=== PATIENT | female | born 1960 | race American Indian/Alaskan Native ===

== ENCOUNTER 2016-08-04 05:59 | Day surgery (SDC) | payer MEDICARE, OTHER ==
[2016-08-04] MEDS ORDERED: NACL 0.9% 1000 ML 1,000 ML IV SCH (06:00)
[2016-08-04] MEDS ORDERED: ANCEF/STERILE WATER 2 GM/20 ML 2 GM/20 ML SYRINGE IV NR (06:00)
[2016-08-04] MEDS ORDERED: NACL BACTERIOSTATIC INFILTRATI ONE (06:12)
[2016-08-04] MEDS ORDERED: NEO SYNEPHRINE ONE (07:13)
[2016-08-04] MEDS ORDERED: SUBLIMAZE ONE (07:13)
[2016-08-04] MEDS ORDERED: DIPRIVAN 10 MG/ML IV ONE ×2 (07:13→09:37)
[2016-08-04] MEDS ORDERED: NACL 0.9% 100 ML ONE (07:14)
[2016-08-04] MEDS ORDERED: DILAUDID IV PRN (07:14)
[2016-08-04] MEDS ORDERED: XYLOCAINE MPF 2% ONE (07:19)
--- NOTE | 2016-08-04 07:24 | Anesthesia Day of Surgery ---
Anesthesia Day of Surgery - Day of Surgery Patient Examined: Yes Patient H&P Reviewed: Yes Patient is NPO: Yes Beta Blockers: No Cardiac Clearance: No Pulmonary Clearance: No
--- NOTE | 2016-08-04 07:26 | Anesthesia Consultation ---
Anesthesia Consult and Med Hx Date of service: 08/04/16 - Airway Anesthetic Teeth Evaluation: Good (some missing) ROM Head & Neck: Adequate Mental/Hyoid Distance: Adequate Mallampati Class: Class II Intubation Access Assessment: Good - Pulmonary Exam CTA: Yes (BLBS/slight decrese with slight wheeze on right) - Cardiac Exam Cardiac Exam: RRR - Pre-Operative Health Status ASA Pre-Surgery Classification: ASA3 Proposed Anesthetic Plan: IV Sedation (ga if needed) - Pulmonary Hx Smoking: No (no hx PE 2015 with prn use of O2) Hx Asthma: Yes (SEASONAL no significant problem x 5 yrs) Hx Respiratory Symptoms: Yes (recent URI) SOB: No COPD: No Home Oxygen Therapy: Yes Hx Pneumonia: No Hx Sleep Apnea: No - Cardiovascular System Hx Hypertension: Yes Hx Heart Murmur: Yes - Endocrine Hx Renal Disease: Yes Hx End Stage Renal Disease: Yes () - Hematic Hx Anemia: Yes
[2016-08-04] MEDS ORDERED: PROVENTIL IH NR (07:30)
[2016-08-04] MEDS ORDERED: PEPCID PO NR (07:30)
[2016-08-04] MEDS ORDERED: NACL 0.9% 500 ML ONE (08:00)
[2016-08-04] MEDS ORDERED: XYLOCAINE 1%/ EPI 1:100,000 INFILTRATI ONE (08:00)
[2016-08-04] MEDS ORDERED: NACL 0.9% 250ML ONE (08:00)
[2016-08-04] MEDS ORDERED: VERSED IV NR (08:00)
[2016-08-04] MEDS ORDERED: LACTATED RINGERS 1,000 ML IV SCH (08:00)
[2016-08-04] MEDS ORDERED: ZOFRAN ONE (08:29)
[2016-08-04] MEDS ORDERED: DECADRON ONE (08:29)
[2016-08-04] MEDS ORDERED: NACL 0.9% IR ONE (08:59)
[2016-08-04] MEDS ORDERED: MARCAINE 0.5% INFILTRATI ONE (08:59)
[2016-08-04] MEDS ORDERED: HEPARIN 10,000 UNITS/10 ML 2,000 UNIT in NACL 0.9% 500 ML 500 ML IR ONE (08:59)
[2016-08-04] MEDS ORDERED: RIFADIN ONE (09:17)
--- NOTE | 2016-08-04 09:59 | Short Stay Summary ---
Short Stay Documentation Date of service: 08/04/16 Narrative H&P: See H&P - History H&P: obtained from office - Allergies and Medications Current Medications: Allergies No Known Allergies Allergy (Verified 10/20/15 23:06) Home Medications Medication Instructions Recorded Confirmed Last Taken Type Warfarin [Coumadin] 7.5 mg PO QDAY 10/21/15 08/04/16 08/03/16 17:00 History amLODIPine [Norvasc] 10 mg PO DAILY 10/21/15 08/04/16 08/04/16 04:30 History Aspirin [Adult Low Dose Aspirin EC] 81 mg PO QDAY 08/02/16 08/04/16 07/28/16 09: 00 History Iron,Carbonyl/Vit C/Vit B12/FA 1 each PO QDAY 08/02/16 08/04/16 08/03/16 09:00 History [Iron 100 Plus Tablet] Losartan [Cozaar] 25 mg PO QDAY 08/02/16 08/04/16 08/04/16 04:30 History Active Medications Albuterol (Proventil) 2.5 mg IH PREOP NR Stop: 08/04/16 16:00 Last Admin: 08/04/16 07:29 Dose: 2.5 mg Famotidine (Pepcid) 20 mg PO PREOP NR Stop: 08/04/16 23:59 Last Admin: 08/04/16 07:37 Dose: 20 mg Hydromorphone HCl (Dilaudid) 0.25 mg IV Q10MIN PRN PRN Reason: Pain, Moderate (4-6) Stop: 08/04/16 16:00 Cefazolin Sodium (Ancef/Sterile Water 2 Gm/20 Ml) 2 gm in 20 mls @ 80 mls/hr IV PREOP NR PRN Reason: Protocol Stop: 08/04/16 23:59 Sodium Chloride (Nacl 0.9% 1000 Ml) 1,000 mls @ 42 mls/hr IV DIRECT BABAK Last Admin: 08/04/16 06:45 Dose: 42 mls/hr Lactated Ringer's (Lactated Ringers) 1,000 mls @ 42 mls/hr IV DIRECT BABAK Midazolam HCl (Versed) 2 mg IV PREOP NR Stop: 08/04/16 23:59 Last Admin: 08/04/16 07:39 Dose: 2 mg - Brief post op/procedure progress note Date of procedure: 08/04/16 Pre-op diagnosis: End-Stage Renal Disease Post-op diagnosis: same Procedure: Creation of left brachiocephalic arteriovenous fistula Anesthesia: R[place] Surgeon: ELEAZAR BERMUDEZ Estimated blood loss: 50-100ml Pathology: none - Disposition Condition at discharge: Good Disposition: DISCHARGED TO HOME OR SELFCARE Short Stay Discharge Plan Activity: other (no heavy lifting with left arm) Wound: open to air, keep clean and dry, other (okay to wash the wound with soap and water but do not soak in water) Follow up with: ELEAZAR BERMUDEZ MD [Staff Physician] - 14 Days Prescriptions: HYDROcodone/APAP 7.5-325 [[place] 7.5/325] 1 each PO Q6HR PRN #50 tablet PRN Reason: Pain
--- NOTE | 2016-08-04 10:07 | Operative Report ---
Operative Report Operative Report: Date of procedure: 08/04/2016 Pre-operative diagnosis: End-Stage Renal Disease Post-operative diagnosis: End-Stage Renal Disease Procedure(s): Creation of Left Brachial Artery to Cephalic Vein Arteriovenous Fistula Surgeon: Vadim Hussein MD Waste Machine Operator: None Anesthesia: Gen. endotracheal anesthesia EBL: 75 mL Counts: Correct Complications: None Condition: Stable Findings: Short segment of cephalic vein at the antecubital fossa was sclerotic and occluded however ultrasound demonstrated the remainder of the vein was widely patent. Excellent thrill in the fistula after the case with a palpable radial pulse. Specimen: None Indications: The patient is a 56-year-old male with history of end-stage renal disease who is currently on hemodialysis through a permacath. She is in need of long-term access. She was given the risks benefits and alternative procedures of an AV fistula and consented to procedure. Description of Procedure: The patient was brought to the operating room and laid in supine position after general endotracheal anesthesia was administered the patient was prepped and draped in normal sterile fashion. After anesthetizing the skin a transverse incision was created just below the antecubital crease. Dissection was carried down to the the cephalic vein using sharp dissection. The vein was dissected out both proximally and distally and suture ligated and divided distally. I attempted to run a 3 Nestor proximally in the vein, to ensure patency of the vein for there was a short segment occlusion in the vein just possible to the antecubital fossa. Ultrasound prior to the beginning of the operation demonstrated that the remainder of the vein was patent. I decided to place a short 6 mm bovine interposition graft. I made a counterincision in the arm to lay over the patent portion of the cephalic vein and then dissected out the veins are circumferentially. I made a small venotomy and extended it with Pott scissors and then passed a 3 Nestor through the vein to ensure patency. I hen flushed the vein with heparinized saline and flow was controlled with a bulldog clamp. I then dissected out the brachial artery through this incision circumferentially both proximal and distal and controlled the artery with vessel loops. I then placed the vessel loops on tension controlling the flow through the artery and created an arteriotomy using an 11 blade and Clemente scissors. I created an end to side anastomosis between the bovine graft and brachial artery using a 6-0 Prolene in running fashion. I then tunneled the graft under the skin and cut the anterior length and beveled the end of it. I created an end-to-side anastomosis between the venous outflow of the graft and the cephalic vein using 6-0 Prolene running fashion. Prior to completing the anastomosis I flushed the tibial inflow and cephalic vein and then completed the anastomosis. I then removed all vessel loops allowing flow into the fistula which had an excellent thrill. I achieved hemostasis with a combination of direct pressure and quick clot. Once hemostasis was achieved I anesthetized the both wounds with Marcaine. I then closed the wounds in 2 layers and 3-0 Vicryl in a running fashion to close the deep dermal layer and 4- 0 Monocryl in a running fashion in the subcuticular layer. I dressed the wound with Dermabond. The patient tolerated the procedure well, all sponge needle and instrument counts were correct. The patient was taken to recovery in stable condition.
--- NOTE | 2016-08-04 12:02 | Post Anesthesia Evaluation ---
- Post Anesthesia Evaluation Patient Participated: Yes Airway Patent: Yes Stable Respiratory Function: Yes Temp > 96.8F: Yes Pain Manageable: Yes Adequeate Hydration: Yes Anesthesia Complications: No Block Receding Appropriately: Not Applicable
[2016-08-04 12:03] VITALS: BP 107/55
== END 2016-08-04 06:00 | disposition home or self-care (01) ==
LOC: OR 05:59
PROVIDERS: ATTEND Surgery Vascular Surgery
DX: E11.22 Type 2 diabetes mellitus with diabetic chronic kidney disease (principal); I12.0 Hypertensive chronic kidney disease with stage 5 chronic kidney disease or end stage renal disease; N18.6 End stage renal disease; D64.9 Anemia, unspecified; J45.909 Unspecified asthma, uncomplicated; Z99.2 Dependence on renal dialysis; Z99.81 Dependence on supplemental oxygen; Z86.711 Personal history of pulmonary embolism
CPT/HCPCS: 36415; 36830; 84132; C1757; C1768; J0690; J1100; J1170; J1644; J2250; J2370; J2405; J2704; J3010; J3490; J7030; J7040; J7050

== ENCOUNTER 2016-10-20 05:58 | Day surgery (SDC) | payer MEDICARE ==
[2016-10-20] MEDS ORDERED: PEPCID PO NR (06:00)
[2016-10-20] MEDS ORDERED: NACL 0.9% 1000 ML 1,000 ML IV SCH (06:00)
[2016-10-20] MEDS ORDERED: ANCEF/STERILE WATER 2 GM/20 ML 2 GM/20 ML SYRINGE IV NR (06:00)
[2016-10-20] MEDS ORDERED: VERSED IV NR (06:00)
[2016-10-20] MEDS ORDERED: NACL BACTERIOSTATIC INFILTRATI ONE (06:33)
[2016-10-20] MEDS ORDERED: NEO SYNEPHRINE/NS Syringe(OR USE) IV ONE (07:00)
[2016-10-20] MEDS ORDERED: ZOFRAN IV PRN (07:08)
--- NOTE | 2016-10-20 07:08 | Anesthesia Day of Surgery ---
Anesthesia Day of Surgery - Day of Surgery Patient Examined: Yes Patient H&P Reviewed: Yes Patient is NPO: Yes
--- NOTE | 2016-10-20 07:08 | Anesthesia Consultation ---
Anesthesia Consult and Med Hx Date of service: 10/20/16 - Airway Anesthetic Teeth Evaluation: Good ROM Head & Neck: Adequate Mental/Hyoid Distance: Adequate Mallampati Class: Class II Intubation Access Assessment: Good - Pulmonary Exam CTA: Yes - Cardiac Exam Cardiac Exam: RRR - Pre-Operative Health Status ASA Pre-Surgery Classification: ASA3 Proposed Anesthetic Plan: General, MAC - Pulmonary Hx Asthma: Yes (SEASONAL no significant problem x 5 yrs) Hx Respiratory Symptoms: Yes (recent URI) Hx Sleep Apnea: Yes - Cardiovascular System Hx Hypertension: Yes Hx Heart Murmur: Yes - Central Nervous System Hx Psychiatric Problems: No - Endocrine Hx End Stage Renal Disease: Yes (TTF dialysis) - Hematic Hx Anemia: Yes - Other Systems Hx Cancer: No
[2016-10-20] MEDS ORDERED: DIPRIVAN 10 MG/ML IV ONE (07:16)
[2016-10-20] MEDS ORDERED: SUBLIMAZE ONE (07:17)
[2016-10-20] MEDS ORDERED: XYLOCAINE MPF 2% ONE (07:18)
[2016-10-20] MEDS ORDERED: MARCAINE 0.5% 30 ML INFILTRATI ONE (07:21)
[2016-10-20] MEDS ORDERED: NACL 0.9% 500 ML 500 ML ONE (07:22)
[2016-10-20] MEDS ORDERED: HEPARIN 10,000 UNITS/10 ML ONE (07:22)
--- NOTE | 2016-10-20 08:20 | Admit Criteria Form ---
Admission Criteria Documentation: AMBULATORY SURGERY EXCEPTION CRITERIA Ambulatory Surgery Exception Criteria ( Place 'X' for any and all applicable criteria): Surgery or procedure performed on ambulatory basis may require inpatient stay for[A] ANY ONE of the following(1)(2)(3)(4)(5)(6)(7)(8)(9): [X] I. A preoperative situation, condition, or finding that warrants inpatient stay as indicated by ANY ONE of the following: [] a) Inpatient care needed because of severity of a disease or condition rather than the surgery (eg, severe cardiac or respiratory disease, severe infection) (15) (16 ) (17) (18) [] b) Emergent procedure (eg, angioplasty for acute ischemia)(19) [] c) Complex surgical approach or situation as indicated by ANY ONE of the following(3): [] i) Open approach needed instead of usual endoscopic, transcatheter, or other less invasive procedure [] ii) Difficult approach because of previous operation [] iii) Airway monitoring required after open neck procedures(20)(21) [] iv) Large mass requiring unusually extensive dissection [] v) Additional complicating feature requiring inpatient care (eg, drain management)(22(23): [X] d) Major surgery in a pt with high anesthetic risk as indicated by ANY ONE of the following (2)(3)(5)(7)(8): [X] i) ASA risk class III or higher (severe systemic disease impairing function) [D] [] ii) Advanced age (eg, older than 85 years)(14)(24) [] iii) Symptomatic heart failure(25) [] iv) Symptomatic asthma or COPD(8)(21) [] v) Morbid obesity with hemodynamic or respiratory problems(20)( 21)(26)(27) [] vi) Obstructive sleep apnea(20)(21) [] vii) Former premature infants who are younger than 60 weeks [] viii) High risk for severe postoperative abnormalities (eg, severe postoperative hypocalcemia after parathyroidectomy for severe hyperparathyroidism)(27)( 28) [] ix) Unstable angina(25) [] e) Drug-related risk requiring inpatient stay as indicated by ANY ONE of the following(5)(10)(14)(32)(33) [] i) Procedure requires discontinuing drugs or other therapy (eg , antiarrhythmic medication, antiseizure medication), which necessitates inpatient observation or treatment.(18)(31) [] ii) Major surgery and high risk drug use as indicated by ANY ONE of the following: [] 1) Active abuse of cocaine or similar drug [] 2) Monoamine oxidase inhibitor use [] 3) Other drug identified as posing risk [] f) Inadequate outpatient care situation as indicated by ANY ONE of the following(5)(10)(14)(32)(33) [] i) Patient lives remote from medical facility and procedure has urgent complication potential, and temporary nearby residence cannot be arranged [] ii) Patient will have postprocedure incapacitation and inadequate assistance at home, or alternative level of care cannot be arranged. [] iii) Patient will have long general anesthesia or procedure side effect resolution time, and competent person to stay with patient on first postoperative night at home or alternative level of care cannot be arranged. []iv) Other inadequate outpatient situation that cannot be handled by other means [] II. A perioperative event, condition, or finding that warrants inpatient stay as indicated by ANY ONE of the following (1)(2)(3): [] a) Inadequate physiologic recovery: cardiovascular, respiratory, or hemodynamic status not normal or near preoperative baseline(18) [] b) Hemodynamic instability [] c) Patient not alert with near normal or baseline mental status [] d) Temperature not normal or as expected and not appropriate for outpatient treatment of condition [] e) Ambulatory or appropriate activity level status not yet achieved post procedure [E](34)(35)(36) [] f) Operative site not appropriate (eg, unexpected or excessive drainage or bleeding) [] g) Postoperative effects not resolved or adequately managed (eg, significant pain or vomiting not appropriate for outpatient or next level of care)(10)(12) [] h) Complicating features requiring inpatient care as indicated by ANY ONE of the following(37): [] i) Severe complications of procedure (eg, bowel injury, airway compromise, vascular injury,severe hemorrhage) [] ii) Extensive (eg, dissection far beyond usual scope of procedure ) or prolonged (eg, 120 minutes beyond usual) surgery needed requiring inpatient postoperative care [] iii) Conversion to an open or complex procedure that requires inpatient care (eg, open vs laparoscopic cholecystectomy, abdominal vs vaginal hysterectomy)(38) [] iv) Comorbid condition or test result identified during or post procedure that requires inpatient care (7) [] v) Malignant hyperthermia(30) [] vi) Other complicating feature requiring inpatient care(22)(23) Inpatient stay may be needed until ALL of the following are present (1)(2)(3)(4) (5)(6)(10)(14)(33)(40): []a) Physiologic recovery: cardiovascular, respiratory, and hemodynamic status normal or near preoperative baseline []b) Hemodynamic stability []c) Patient alert, with near normal or baseline mental status []d) Temperature appropriate: patient afebrile or temperature appropriate for outpt treatment of condition []e) Activity level appropriate: ambulatory or appropriate activity level post procedure []f) Operative site appropriate as indicated by ALL of the following: []i) Site dry or with expected drainage []ii) Any blood noted is as expected for procedure. []g) Postoperative effects resolved or managed as indicated by ALL of the following: []i) Pain management appropriate for outpatient (or next level of) care(10) []ii) Minimal nausea and vomiting: if present, successfully treated with oral medication(12) []iii) Headache, dizziness, or drowsiness (if present) are mild. []h) Voiding status acceptable as indicated by ANY ONE of the following: []i) Voiding spontaneously []ii) No voiding but instructions given for follow-up in 6 to 8 hours []iii) Urinary catheter in place, and instructions given for follow-up []i) Complicating features requiring inpatient care manageable at a lower level of care(37) []j) Comorbid conditions manageable at a lower level of care(37) The original [employer] content created by [employer] has been revised. The portions of the content which have been revised are identified through the use of italic text or in bold, and [facility] [id number] has neither reviewed nor approved the modified material. All other unmodified content is copyright [employer]. Please see references footnoted in the original [employer] edition 2016 Admission Criteria Met: Yes
[2016-10-20] MEDS ORDERED: HEPARIN 10,000 UNITS/10 ML 2,000 UNIT in NACL 0.9% 500 ML 500 ML IR ONE (08:23)
[2016-10-20] MEDS ORDERED: NACL 0.9% IR ONE (08:35)
[2016-10-20] MEDS ORDERED: MARCAINE 0.5% INFILTRATI ONE ×2 (08:39)
--- NOTE | 2016-10-20 09:17 | Short Stay Summary ---
Short Stay Documentation Date of service: 10/20/16 Narrative H&P: See H&P - History H&P: obtained from office - Allergies and Medications Current Medications: Allergies No Known Allergies Allergy (Verified 10/20/15 23:06) Home Medications Medication Instructions Recorded Confirmed Last Taken Type Warfarin [Coumadin] 7.5 mg PO QPM 10/21/15 10/20/16 10/19/16 History amLODIPine [Norvasc] 10 mg PO DAILY 10/21/15 10/20/16 10/20/16 04:30 History Aspirin [Adult Low Dose Aspirin EC] 81 mg PO QDAY 08/02/16 10/20/16 10/19/16 History Iron,Carbonyl/Vit C/Vit B12/FA 1 each PO QDAY 08/02/16 10/20/16 10/19/16 History [Iron 100 Plus Tablet] Losartan [Cozaar] 25 mg PO QDAY 08/02/16 10/20/16 10/20/16 04:30 History Sevelamer Carbonate [Renvela] 800 mg PO TIDWM 10/20/16 10/20/16 10/19/16 History Active Medications Famotidine (Pepcid) 20 mg PO PREOP NR Stop: 10/20/16 23:59 Last Admin: 10/20/16 06:49 Dose: 20 mg Hydromorphone HCl (Dilaudid) 0.25 mg IV Q10MIN PRN PRN Reason: Pain, Moderate (4-6) Stop: 10/23/16 07:09 Cefazolin Sodium (Ancef/Sterile Water 2 Gm/20 Ml) 2 gm in 20 mls @ 80 mls/hr IV PREOP NR PRN Reason: Protocol Stop: 10/20/16 23:01 Sodium Chloride (Nacl 0.9% 1000 Ml) 1,000 mls @ 42 mls/hr IV DIRECT BABAK Last Admin: 10/20/16 07:18 Dose: 42 mls/hr Midazolam HCl (Versed) 2 mg IV PREOP NR Stop: 10/20/16 23:59 Last Admin: 10/20/16 07:54 Dose: 2 mg Ondansetron HCl (Zofran) 4 mg IV ONCE PRN PRN Reason: Nausea And Vomiting Stop: 10/20/16 07:09 Oxycodone/Acetaminophen (Percocet 5/325) 1 tab PO ONCE PRN PRN Reason: Pain, Moderate (4-6) Stop: 10/20/16 07:09 - Brief post op/procedure progress note Date of procedure: 10/20/16 Pre-op diagnosis: complications of dialysis access Post-op diagnosis: same Procedure: Revision with elevation of left brachiocephalic arteriovenous fistula Anesthesia: GETA Surgeon: ELEAZAR BERMUDEZ Estimated blood loss: minimal Pathology: none Condition: stable - Disposition Condition at discharge: Good Disposition: DISCHARGED TO HOME OR SELFCARE Short Stay Discharge Plan Activity: other (no heavy lifting with left arm) Wound: open to air, keep clean and dry, other (okay to wash the wound with soap and water but do not soak in water) Follow up with: PRIMARY CARE, [Primary Care Provider] - 7 Days ELEAZAR BERMUDEZ MD [Staff Physician] - 14 Days Prescriptions: HYDROcodone/APAP 7.5-325 [[place] 7.5/325] 1 each PO Q6HR PRN #60 tablet PRN Reason: Pain
--- NOTE | 2016-10-20 09:22 | Operative Report ---
Operative Report Operative Report: Date of procedure: 10/20/2016 Pre-operative diagnosis: Complications of Dialysis Access Post-operative diagnosis: Same Procedure(s): Revision with Elevation of Left Brachiocephalic AV Fistula Surgeon: Vadim Hussein MD Skiver Box Toe: None Anesthesia: General Endotracheal Anesthesia EBL: Minimal Counts: Correct Complications: None Condition: Stable Findings: Successful elevation of left brachiocephalic fistula with excellent thrill. Specimen: None Indication: The patient is a 56-year-old female with a history of end-stage renal disease currently on hemodialysis through a permacath. She had creation of brachiocephalic arteriovenous fistula (too deep to access or requires revision with elevation. She was given the risks, benefits, and alternative procedures and consented to procedure. Description of Procedure: The patient was brought to the operating room and laid in supine position after general endotracheal anesthesia was achieved her left arm was prepped and draped in normal sterile fashion. A longitudinal incision was then created just medial to the brachiocephalic arteriovenous fistula extending from just distal to the shoulder and just proximal to the antecubital crease.. Sharp dissection was used to continue the dissection down to the fistula. The fistula was then dissected circumferentially and all side branches were suture ligated and divided. I created a subcutaneous pocket on the lateral aspect of the incision and secured the fistula within the pocket with interrupted 3-0 Vicryl sutures. I achieved hemostasis in the wound with a combination of with which clot and electrocautery. I then anesthetized the wound with Marcaine and closed the wound in 2 layers using a 3-0 Vicryl in running fashion in the deep dermal layer and a 4-0 Monocryl in running fashion in the subcuticular. I then dressed the wound with Surgicel. The patient tolerated the procedure well, all sponge needle and instrument counts were correct, the patient was taken to the recovery area in stable condition.
[2016-10-20] MEDS: DILAUDID IV PRN ×2 (09:38→09:50)
[2016-10-20] MEDS ORDERED: PERCOCET 5/325 PO PRN (10:00)
[2016-10-20] MEDS ORDERED: REGLAN PO SCH (12:00)
[2016-10-20 12:17] VITALS: BP 156/93
== END 2016-10-20 12:13 | disposition home or self-care (01) ==
LOC: OR 05:58
PROVIDERS: ATTEND Surgery Vascular Surgery
DX: T82.898A Other specified complication of vascular prosthetic devices, implants and grafts, initial encounter (principal); J45.909 Unspecified asthma, uncomplicated; N18.6 End stage renal disease; I12.0 Hypertensive chronic kidney disease with stage 5 chronic kidney disease or end stage renal disease; Y83.9 Surgical procedure, unspecified as the cause of abnormal reaction of the patient, or of later complication, without mention of misadventure at the time of the procedure; Y92.9 Unspecified place or not applicable
CPT/HCPCS: 36415; 36832; 84132; J0690; J1170; J1644; J2250; J2370; J2405; J2704; J3010; J7030; J7040